=== PATIENT | female | born 1945 | race Caucasian/White ===

== ENCOUNTER → 2019-10-09 | Outpatient (CLI) | payer MEDICARE | LOC: RAD 09:42 | PROVIDERS: ATTEND Internal Medicine | DX: I73.9 Peripheral vascular disease, unspecified (principal); I87.2 Venous insufficiency (chronic) (peripheral); R07.9 Chest pain, unspecified; R06.02 Shortness of breath | CPT/HCPCS: 93306; 93925 ==